=== PATIENT | male | born 1960 | race Caucasian/White ===

== ENCOUNTER 2017-11-12 20:30 | Emergency (ER) | payer MEDICARE, OTHER ==
[~2017-11-12] VITALS: Ht 175.3 cm; Wt 68.0 kg
[2017-11-12] MEDS ORDERED: ONDANSETRON HCL INJ 2 MG/ML VIAL IV STA (21:07)
[2017-11-12] MEDS ORDERED: MORPHINE SULFATE 2 MG/ML SYR IV STA (21:07)
[2017-11-12] MEDS ORDERED: SODIUM CHLORIDE 0.9% 1000ML 1,000 ML IV ONE (21:15)
[2017-11-12] MEDS ORDERED: DIATRIZOATE MEGL/DIATRIZOA SOD 30 ML BTL PO ONE (21:15)
[2017-11-12 21:18] LABS: CLARITY,URINE SL CLOUDY (CLEAR); COLOR,URINE YELLOW (YELLOW); LEUKOCYTE ESTERASE ,URINE NEGATIVE (NEGATIVE); NITRITE,URINE NEGATIVE (NEGATIVE)
[2017-11-12 21:19] LABS: BILIRUBIN,URINE NEGATIVE (NEGATIVE); KETONES,URINE NEGATIVE (NEGATIVE); PROTEIN,URINE DIPSTICK NEGATIVE (NEGATIVE); URINE UROBILINOGEN 1 mg/dL (0.2 - 1)
[2017-11-12 21:29] LABS: ALANINE AMINOTRANSFERASE 7 IU/L (0-55); ALBUMIN/GLOBULIN RATIO 0.6 (0.8-2.0); ALKALINE PHOSPHATASE 128 IU/L (40-150); AMYLASE 130 U/L (25-125); ANION GAP 14.7 mmol/L (8-16); BLOOD UREA NITROGEN 11 mg/dL (7-26); BUN/CREATININE RATIO 15 (6-25); CALCIUM 9.1 mg/dL (8.4-10.2); CARBON DIOXIDE 20 mmol/L (22-29); CHLORIDE 101 mmol/L (98-107); CREATININE, SERUM 0.75 mg/dL (0.72-1.25); EST GLOMERULAR FILTRATION RATE > 60 ML/MIN (60-); GLUCOSE 102 mg/dL (74-118); LIPASE 17 U/L (8-78); POTASSIUM 3.7 mmol/L (3.5-5.1); SODIUM 132 mmol/L (136-145)
[2017-11-12 21:33] LABS: EPITHELIAL CELLS,URINE RARE /LPF
[2017-11-12 21:38] LABS: CALCIUM OXALATE CRYSTALS,UR RARE (FEW)
[2017-11-12 23:04] LABS: BASOPHILS % 0.3 % (0.0-1.0); EOSINOPHILS # (AUTO) 0.3 (0.0-0.4); EOSINOPHILS % 1.9 % (0.0-6.0); HEMATOCRIT 27.1 % (38.2-49.6); HEMOGLOBIN 7.8 g/dL (14.0-18.0); LYMPHOCYTES # (AUTO) 1.3 (1.0-3.2); LYMPHOCYTES % 8.1 % (18.0-39.1); MEAN CORPUSCULAR HEMOGLOBIN 22.2 pg (28-32); MEAN CORPUSCULAR HGB CONC 28.8 g/dL (31-35); MEAN CORPUSCULAR VOLUME 77.2 fL (81-99); MONOCYTES # (AUTO) 1.6 (0.2-0.8); MONOCYTES % 10.2 % (4.4-11.3); NEUTROPHILS # (AUTO) 12.4 (2.1-6.9); NEUTROPHILS % 78.9 % (38.7-80.0); PLATELET COUNT 412 x10e3/uL (140-360); RED BLOOD COUNT 3.51 x10e6/uL (4.3-5.7); RED CELL DISTRIBUTION WIDTH 17.5 % (11.7-14.4)
--- NOTE | 2017-11-12 23:23 | Diagnostic Imaging Report ---
EXAM: CT Abdomen and Pelvis WITH contrast INDICATION: Pelvic and lower abdominal pain COMPARISON: None. TECHNIQUE: Abdomen and pelvis were scanned utilizing a multidetector helical scanner from the lung base to the pubic symphysis after administration of IV contrast. Coronal and sagittal reformations were obtained. Routine protocol was performed. Scan was performed when during portal venous phase. IV CONTRAST: 100 mL of Isovue-370 ORAL CONTRAST: Gastrografin RADIATION DOSE: Total DLP: 333.40 mGy*cm Estimated effective dose: (DLP x 0.015 x size factor) mSv COMPLICATIONS: None FINDINGS: LINES and TUBES: None. LOWER THORAX: Unremarkable HEPATOBILIARY: There are a few peripheral calcifications in the superior capsular region of the liver as seen on series 2, image 19 and 21. No focal hepatic lesions. No biliary ductal dilation. GALLBLADDER: No radio-opaque stones or sludge. No wall thickening. SPLEEN: No splenomegaly. PANCREAS: No focal masses or ductal dilatation. ADRENALS: No adrenal nodules KIDNEYS/URETERS: Kidneys enhance symmetrically. No hydronephrosis. No cystic or solid mass lesions. Bilateral nephrolithiasis. Right kidney: 3 mm stone noted in the inferior renal collecting system. Left kidney: 1 x 1.8 cm large stone in the inferior left renal collecting system. Additional smaller stones are noted in the upper and interpolar region of the left kidney. GI TRACT: No abnormal distention, wall thickening, or evidence of bowel obstruction. There are diverticula within the colon without evidence of diverticulitis. Appendix is normal. PELVIC ORGANS/BLADDER: Unremarkable. LYMPH NODES: No lymphadenopathy. VESSELS: There is moderate atherosclerotic disease in the aorta and major arterial branches. PERITONEUM / RETROPERITONEUM: No free air or fluid. BONES: There are severe degenerative changes in the lumbar spine. SOFT TISSUES: Questionable skin thickening in the perineal region suspicious for cellulitis. Perianal fistula is also suspected. IMPRESSION: 1. Bilateral nephrolithiasis left greater than right. 2. Perineal soft tissue inflammatory changes associated with questionable left peritoneal fistula and superficial soft tissue phlegmon. 3. Diverticulosis without evidence of diverticulitis. Signed by: Dr. Jorge A Alejandra M.D. on 11/12/2017 11:19 PM
[2017-11-13] MEDS ORDERED: SODIUM CHLORIDE 0.9% 50ML 50 ML ONE (01:23)
[2017-11-13] MEDS ORDERED: IOPAMIDOL 370 MG/ML 200 ML INFUS..BTL INJ ONE (01:23)
== END 2017-11-12 23:00 | disposition left against medical advice (07) ==
LOC: ER 20:30
DX: R10.30 Lower abdominal pain, unspecified (principal); R11.0 Nausea; Z85.828 Personal history of other malignant neoplasm of skin; F17.210 Nicotine dependence, cigarettes, uncomplicated
CPT/HCPCS: 36415; 74177; 80053; 81001; 82150; 83690; 85025; 99284; J2270; J2405; J7030